=== PATIENT | female | born 1960 | race Caucasian/White ===

== ENCOUNTER 2019-04-12 06:00 | Day surgery (SDC) | payer OTHER ==
[~2019-04-12] VITALS: Ht 149.9 cm; Wt 63.6 kg
[~2019-04-12 06:00] MED LIST: FLUO20TA29 PO; LAMO100T56 PO; LORA-1000 PO; RINGERS SOLUTION,LACTATED 1,000 ML IV ONE
[2019-04-12] MEDS ORDERED: KETAMINE HCL 50 MG/ML 10 ML VIAL IVP ONE ×2 (06:01)
[2019-04-12] MEDS ORDERED: RINGERS SOLUTION,LACTATED 1,000 ML IV ONE (07:00)
[2019-04-12] MEDS ORDERED: AMPICILLIN SODIUM 1 GM/VIAL ONE (07:10)
[2019-04-12] MEDS ORDERED: SODIUM CHLORIDE 0.9% 100 ML ONE (07:11)
[2019-04-12] MEDS ORDERED: MIDAZOLAM HCL 5 MG/ML VIAL ONE (07:59)
[2019-04-12 08:28] LABS: BASOPHILS % (AUTO) 0.8 % (0.0-2.0); EOSINOPHILS % (AUTO) 0.9 % (1.0-6.0); HEMATOCRIT 35.5 % (36-46); HEMOGLOBIN 12.1 g/dL (12.0-16.0); LYMPHOCYTES # (AUTO) 1.1 K/uL (1.0-4.8); MEAN CORPUSCULAR HEMOGLOBIN 30.8 pg (26.0-34.0); MEAN CORPUSCULAR VOLUME 91 fL (80-100); MONOCYTES # (AUTO) 0.3 K/uL (0.1-1.0); MONOCYTES % (AUTO) 5.8 % (2.0-9.0); NEUTROPHILS # (AUTO) 3.8 K/uL (1.8-7.7); NEUTROPHILS % (AUTO) 71.5 % (40.0-70.0); PLATELET COUNT (AUTO) 142 K/uL (150-450); RED BLOOD CELL COUNT(AUTO) 3.92 MIL/uL (4.00-5.20); RED CELL DISTRIBUTION WIDTH 13.1 % (11.5-14.5)
[2019-04-12 08:37] LABS: ANION GAP 8 mmol/L (8-16); CARBON DIOXIDE 28 mmol/L (22-29); CHLORIDE 105 mmol/L (98-107); CREATININE 0.81 mg/dL (0.60-1.30); GLOMERULAR FILTR. RATE CALC > 60 mL/min (>60); GLUCOSE,RANDOM 84 mg/dL (70-110); POTASSIUM 3.4 mmol/L (3.5-5.1); SODIUM SERUM 141 mmol/L (136-145); UREA NITROGEN, BLOOD 13 mg/dL (7-18)
[2019-04-12 08:40] LABS: PROTHROMBIN TIME 10.2 SEC (9.4-11.6)
[2019-04-12 08:43] LABS: ALANINE AMINOTRANSFERASE 28 U/L (12-78); ALBUMIN 3.6 g/dL (3.4-5.0); ALKALINE PHOSPHATASE 168 U/L (46-116); ASPARTATE AMINOTRANSFERASE 28 U/L (15-37); BILIRUBIN,TOTAL 0.5 mg/dL (0.1-1.0); TOTAL PROTEIN, SERUM 7.2 g/dL (6.4-8.2)
[2019-04-12] MEDS ORDERED: MEPERIDINE-PF 25 MG/ML VIAL IVP PRN (09:45)
[2019-04-12] MEDS ORDERED: HYDROmorphone 2 MG/ML SYRINGE IVP PRN (09:45)
[2019-04-12] MEDS ORDERED: FentaNYL CITRATE-PF 100 MCG/2 ML VIAL IVP PRN (09:45)
[2019-04-12] MEDS ORDERED: OXYGEN THERAPY IH SCH (20:00)
[2019-04-12] MEDS ORDERED: PROPOFOL 1% 20 ML VIAL IVP ONE (21:32)
[2019-04-12] MEDS ORDERED: DEXAMETHASONE SOD PHOS 4 MG/ML VIAL ONE (21:32)
[2019-04-12] MEDS ORDERED: ONDANSETRON HCL 4 MG/2 ML VIAL ONE (21:32)
[2019-04-12] MEDS ORDERED: LIDOCAINE 1% 10 ML VIAL ONE (21:32)
[2019-04-12] MEDS ORDERED: ROCURONIUM BROMIDE 10 MG/ML 5 ML VIAL ONE (21:32)
[2019-04-12] MEDS ORDERED: GLYCOPYRROLATE 0.2 MG/ML VIAL ONE (21:32)
== END 2019-04-12 12:15 | disposition home or self-care (01) ==
LOC: SURGERY 06:00
PROVIDERS: ATTEND Dentist General Practice
DX: K02.9 Dental caries, unspecified (principal); K05.30 Chronic periodontitis, unspecified; K03.6 Deposits [accretions] on teeth; Z79.01 Long term (current) use of anticoagulants; Z79.899 Other long term (current) drug therapy
CPT/HCPCS: 36415; 41899; 71045; 80053; 85025; 85610; 85730; 93005; J0290; J1100; J2250; J2405; J2704; J3490 ×4; J7050; J7120

== ENCOUNTER → 2021-01-24 | Day surgery (SDC) | payer OTHER ==
[~2021-01-24] MED LIST changes: +AMPICILLIN SODIUM 1 GM/VIAL ONE; +DEXAMETHASONE SOD PHOS 4 MG/ML VIAL IVP ONE; +FentaNYL CITRATE PF 100 MCG/2 ML VIAL IVP ONE; +FentaNYL CITRATE PF 100 MCG/2 ML VIAL IVP PRN; +HYDROmorphone 2 MG/ML VIAL IVP PRN; +KETAMINE HCL 50 MG/ML 10 ML VIAL IVP ONE; +LIDOCAINE/PF 2% 5 ML VIAL IM ONE; +MEPERIDINE-PF 25 MG/ML VIAL IVP PRN; +MIDAZOLAM HCL 2 MG/2 ML VIAL IVP ONE; +MIDAZOLAM HCL 5 MG/ML VIAL ONE; +ONDANSETRON HCL 4 MG/2 ML VIAL IVP ONE; +OXYGEN THERAPY IH SCH; +OXYMETAZOLINE HCL 0.05% 15 ML NASAL SPRAY NASAL ONE; +PROPOFOL 1% 20 ML VIAL IVP ONE; +SODIUM CHLORIDE 0.9% 10 ML ONE; +SODIUM CHLORIDE 0.9% 100 ML ONE
[2021-01-24 07:51] LABS: BASOPHILS % (AUTO) 1.1 % (0.0-2.0); EOSINOPHILS % (AUTO) 0.8 % (1.0-6.0); HEMATOCRIT 36.4 % (36-46); HEMOGLOBIN 12.4 g/dL (12.0-16.0); LYMPHOCYTES # (AUTO) 1.2 K/uL (1.0-4.8); LYMPHOCYTES % (AUTO) 19.8 % (22.0-44.0); MEAN CORPUSCULAR HEMOGLOBIN 31.1 pg (26.0-34.0); MEAN CORPUSCULAR VOLUME 91 fL (80-100); MONOCYTES # (AUTO) 0.4 K/uL (0.1-1.0); NEUTROPHILS # (AUTO) 4.5 K/uL (1.8-7.7); NEUTROPHILS % (AUTO) 72.3 % (40.0-70.0); PLATELET COUNT (AUTO) 154 K/uL (150-450); RED BLOOD CELL COUNT(AUTO) 3.98 MIL/uL (4.00-5.20); RED CELL DISTRIBUTION WIDTH 12.9 % (11.5-14.5)
[2021-01-24 08:01] LABS: ANION GAP 9 mmol/L (8-16); CALCIUM, TOTAL 9.3 mg/dL (8.8-10.5); CARBON DIOXIDE 28 mmol/L (22-29); CHLORIDE 106 mmol/L (98-107); CREATININE 0.81 mg/dL (0.60-1.30); GLOMERULAR FILTR. RATE CALC > 60 mL/min (>60); GLUCOSE,RANDOM 97 mg/dL (70-110); POTASSIUM 3.6 mmol/L (3.5-5.1); SODIUM SERUM 143 mmol/L (136-145); UREA NITROGEN, BLOOD 19 mg/dL (7-18)
[2021-01-24 08:06] LABS: COVID AG,FIA SOURCE NASOPHARYNGEAL
[2021-01-24 08:07] LABS: PROTHROMBIN TIME 10.5 SEC (9.4-11.6)
[2021-01-24 08:09] LABS: ALANINE AMINOTRANSFERASE 19 U/L (12-78); ALBUMIN 3.7 g/dL (3.4-5.0); ALKALINE PHOSPHATASE 142 U/L (46-116); ASPARTATE AMINOTRANSFERASE 25 U/L (15-37); BILIRUBIN,TOTAL 0.5 mg/dL (0.1-1.0); TOTAL PROTEIN, SERUM 7.5 g/dL (6.4-8.2)
== END | disposition home or self-care (01) ==
LOC: SURGERY 06:09
PROVIDERS: ATTEND Dentist General Practice
DX: K02.9 Dental caries, unspecified (principal); K05.30 Chronic periodontitis, unspecified; K03.6 Deposits [accretions] on teeth; F84.0 Autistic disorder; Z79.01 Long term (current) use of anticoagulants; M81.0 Age-related osteoporosis without current pathological fracture; G40.909 Epilepsy, unspecified, not intractable, without status epilepticus; F41.9 Anxiety disorder, unspecified; Z79.899 Other long term (current) drug therapy; Z98.890 Other specified postprocedural states
CPT/HCPCS: 36415; 41899; 71045; 80053; 85025; 85610; 85730; 87426; 93005; C9803; J0290; J1100; J2250 ×2; J2405; J2704; J3010; J3490 ×2; J7050; J7120

== ENCOUNTER 2022-05-01 05:53 | Day surgery (SDC) | payer OTHER, MEDICARE ==
[~2022-05-01] VITALS: Ht 149.9 cm; Wt 59.0 kg
[~2022-05-01 05:53] MED LIST changes: -AMPICILLIN SODIUM 1 GM/VIAL ONE; -DEXAMETHASONE SOD PHOS 4 MG/ML VIAL IVP ONE; -FentaNYL CITRATE PF 100 MCG/2 ML VIAL IVP ONE; -FentaNYL CITRATE PF 100 MCG/2 ML VIAL IVP PRN; -HYDROmorphone 2 MG/ML VIAL IVP PRN; -KETAMINE HCL 50 MG/ML 10 ML VIAL IVP ONE; -LIDOCAINE/PF 2% 5 ML VIAL IM ONE; -MEPERIDINE-PF 25 MG/ML VIAL IVP PRN; -MIDAZOLAM HCL 2 MG/2 ML VIAL IVP ONE; -MIDAZOLAM HCL 5 MG/ML VIAL ONE; -ONDANSETRON HCL 4 MG/2 ML VIAL IVP ONE; -OXYGEN THERAPY IH SCH; -OXYMETAZOLINE HCL 0.05% 15 ML NASAL SPRAY NASAL ONE; -PROPOFOL 1% 20 ML VIAL IVP ONE; -RINGERS SOLUTION,LACTATED 1,000 ML IV ONE; -SODIUM CHLORIDE 0.9% 10 ML ONE; -SODIUM CHLORIDE 0.9% 100 ML ONE
[2022-05-01] MEDS ORDERED: PROPOFOL 1% 20 ML VIAL IVP ONE (05:54)
[2022-05-01] MEDS ORDERED: LIDOCAINE/PF 2% 5 ML VIAL IM ONE (05:54)
[2022-05-01] MEDS ORDERED: ONDANSETRON HCL 4 MG/2 ML VIAL IVP ONE (05:54)
[2022-05-01] MEDS ORDERED: FentaNYL CITRATE PF 100 MCG/2 ML VIAL IVP ONE (05:54)
[2022-05-01] MEDS ORDERED: ROCURONIUM BROMIDE 10 MG/ML 5 ML VIAL IVP ONE (05:54)
[2022-05-01] MEDS ORDERED: 0.9% SODIUM CHLORIDE 10 ML VIAL IVP ONE (05:54)
[2022-05-01] MEDS ORDERED: DEXAMETHASONE SOD PHOS 4 MG/ML VIAL IVP ONE (05:54)
[2022-05-01] MEDS ORDERED: METOPROLOL TARTRATE 5 MG/5 ML VIAL IVP ONE (05:54)
[2022-05-01] MEDS ORDERED: RINGERS SOLUTION,LACTATED 1,000 ML IV ONE ×2 (07:00→07:43)
[2022-05-01 07:46] LABS: COVID AG,FIA SOURCE NASAL SWAB
[2022-05-01 08:20] LABS: CALCIUM, TOTAL 9.8 mg/dL (8.8-10.5); CREATININE 0.95 mg/dL (0.60-1.30)
[2022-05-01 08:28] LABS: ALBUMIN 3.8 g/dL (3.4-5.0); BILIRUBIN,TOTAL 0.3 mg/dL (0.1-1.0); INR 0.9 (0.9-1.1); PROTHROMBIN TIME 10.1 SEC (9.4-11.6); TOTAL PROTEIN, SERUM 7.5 g/dL (6.4-8.2)
[2022-05-01 08:45] LABS: BASOPHILS % (AUTO) 0.9 % (0.0-2.0); EOSINOPHILS % (AUTO) 1.3 % (1.0-6.0); HEMATOCRIT 36.6 % (36-46); HEMOGLOBIN 12.3 g/dL (12.0-16.0); LYMPHOCYTES # (AUTO) 1.2 K/uL (1.0-4.8); LYMPHOCYTES % (AUTO) 19.6 % (22.0-44.0); MEAN CORPUSCULAR HEMOGLOBIN 31.2 pg (26.0-34.0); MEAN CORPUSCULAR HGB CONC 33.7 G/dL (31.0-37.0); MEAN CORPUSCULAR VOLUME 93 fL (80-100); MONOCYTES # (AUTO) 0.4 K/uL (0.1-1.0); MONOCYTES % (AUTO) 6.9 % (2.0-9.0); NEUTROPHILS # (AUTO) 4.5 K/uL (1.8-7.7); NEUTROPHILS % (AUTO) 71.3 % (40.0-70.0); PLATELET COUNT (AUTO) 163 K/uL (150-450); RED BLOOD CELL COUNT(AUTO) 3.94 MIL/uL (4.00-5.20); RED CELL DISTRIBUTION WIDTH 12.8 % (11.5-14.5)
[2022-05-01] MEDS ORDERED: AMPICILLIN SODIUM 2 GM/NS 100 ML IV ONE (09:32)
== END 2022-05-01 10:35 | disposition home or self-care (01) ==
LOC: SURGERY 05:53
PROVIDERS: ATTEND Dentist General Practice
DX: K05.30 Chronic periodontitis, unspecified (principal); K02.9 Dental caries, unspecified; K03.6 Deposits [accretions] on teeth; F41.9 Anxiety disorder, unspecified; M81.0 Age-related osteoporosis without current pathological fracture; G40.909 Epilepsy, unspecified, not intractable, without status epilepticus; Z79.899 Other long term (current) drug therapy; Z20.822 Contact with and (suspected) exposure to COVID-19; Z98.890 Other specified postprocedural states; F84.0 Autistic disorder; Z79.01 Long term (current) use of anticoagulants
CPT/HCPCS: 41899; 71045; 87426; 80053; 85025; 85610; 85730; 36415; 93005; J0290; J2704; J1100; J3010; J3490 ×3; J2405; J7120; C9803